=== PATIENT | male | born 1935 | race Caucasian/White ===

== ENCOUNTER 2019-02-19 14:07 | Outpatient (CLI) | payer MEDICARE, BC, SELFPAY ==
--- NOTE | 2019-02-19 06:00 | DI.RAD_ITS ---
SYMPTOMS/DIAGNOSIS: LUMBAR RADICULOPATHY PAIN CLINIC LUMBAR SPINE: Fluoroscopy Time: 13.8 sec Fluoroscopy was utilized by Dr. Gaytan during the performance of a lumbar epidural steroid injection. Please refer to the procedure report for complete details.
[2019-02-19 14:18] VITALS: BP 104/70; PULSE 71; RESP 22; TEMP 37.2; O2SAT 94
[2019-02-19] MEDS: Omnipaque 240 MG/ML 50 ML BTL IJ (14:57)
[2019-02-19 14:58] VITALS: BP 151/88; PULSE 72; RESP 19; O2SAT 93
--- NOTE | 2019-02-19 14:59 | PDOC.PAIN_ITS ---
Pain Clinic Procedure Note Current Active Problems Problem Status Onset Lumbosacral radiculopathy Lumbar Epidural Steroid Injection Procedure Note COMMENTS: I reviewed his recent notes. SARABJIT MORAN has been referred to the [facility] for lumbar epidural steroid injection. The patient was greeted by the nurse who verified patients name and . Patient was then taken to the fluoroscopy suite. The patient was interviewed and the medial record reviewed. There were no med ical, pharmacologic, radiographic, or other structural contraindications to attempting fluoroscopically guided lumbar epidural steroid injection. Risks and expected side effects as well as potential benefits of the procedure were reviewed and voiced concerns expressed. The patient consent form was signed and witnessed. Standard patient time-out procedure was performed. The patient was placed in the prone position on the fluoroscopy table and automated blood pressure cuff and pulse oximeter applied. The skin entry point for entering/approaching the epidural space at L5-S1 and marked. Following thorough chlorhexadine preparation of the skin and draping and 1% lidocaine infiltration of the skin entry point and subcutaneous tissues, a 18 gauge Touhy needle was placed under fluoroscopic guidance and with loss of resistance technique into the epidural space. Needle tip placement and depth were aided and confirmed by fluoroscopy. There was no paresthesia or return of blood or CSF through the needle. 1 cc's of Omnipaque 240 was injected with clear epidural spread confirmed with fluoroscopy. 80mg depomedrol was injected. There was not any unusual discomfort expressed by SARABJIT MORAN. Patient's vital signs were stable throughout the procedure and were as recorded in nursing records. Follow up plans and appointments were discussed with patient. Post procedure instruction was given as documented in nursing records and having met discharge criteria and was discharged from the [facility]. COMMENTS: If this procedure is helpful, it can be completed up to 3 times per 12 months.
[2019-02-19] MEDS: methylPREDNISolone ACETATE 40 MG/ML VIAL IM (15:23)
== END 2019-02-19 14:27 ==
PROVIDERS: PCP Family Medicine; Visit Provider Preventive Medicine Occupational Medicine
DX: M54.17 Radiculopathy, lumbosacral region (principal)
CPT/HCPCS: 62323; 72100; J1030; Q9967

== ENCOUNTER 2019-03-25 13:53 | Emergency (ER) | payer MEDICARE, BC, SELFPAY ==
[2019-03-25] VITALS (32 sets, daily range): BP systolic 90–137; BP diastolic 47–85; PULSE 61–79; RESP 13–25; TEMP 35.9; O2SAT 90–98
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
--- NOTE | 2019-03-25 14:21 | DI.CT_ITS ---
EXAM: CT HEAD WO CLINICAL HISTORY: dizzy, struck head a few days ago. TECHNIQUE: A noncontrast enhanced cranial CT was carried out according to the usual protocol. COMPARISON: No exams were available for comparison FINDINGS: Age-appropriate atrophic changes are demonstrated. There is no evidence of an intra or extra-axial hemorrhage. The dukes-white matter is maintained. The ventricles are normal. No acute bony abnormali ty is seen. The sinuses are intact. There is no mastoid effusion. The soft tissues are unremarkable. Note is made of calcification in the vertebral arteries and the bilateral internal carotid arteries. Note is also made of bilateral cataract surgery. IMPRESSION: No acute intracranial abnormality is demonstrated.
[2019-03-25] MEDS: Normal Saline 1,000 ML 1000 ML IV (14:25)
[2019-03-25 14:39] LABS: Abs Immature Grans 0.01 k/cumm (0.0-0.09); Absolute Basophil Count 0.01 k/cumm (0.0-0.2); Absolute Eosinophil Count 0.05 k/cumm (0.0-0.7); Absolute Lymphocyte Count 1.05 k/cumm (1.2-3.4); Absolute Monocyte Count 0.43 k/cumm (0.11-0.7); Absolute Neutrophil Count 4.19 k/cumm (1.2-6.7); Basophils % 0.2; Eosinophils % 0.9; HGB 15.3 g/dL (13.5-17.5); Immature Grans % 0.2; Lymphocytes % 18.3; Mean Corp. HGB Concentration 33.3 g/dL (32.0-36.0); Mean Corpuscular Hemoglobin 31.4 pg (27.0-33.0); Mean Corpuscular Volume 94.3 fL (80-95); Mean Platelet Volume 9.8 fL (8.0-11.0); Monocytes % 7.5; Neutrophils % 72.9; Platelet Count 208 x1000/uL (130-400); RBC 4.88 m/cumm (4.50-6.00); RBC Distribution Width 14.5 % (11.8-14.1); White Blood Cell Count 5.74 k/cumm (4.4-10.8)
[2019-03-25 14:56] LABS: ALT 23 U/L (16-63); AST 16 U/L (15-37); Albumin 3.6 g/dL (3.4-5.0); Alkaline Phosphatase 97 U/L (46-116); Anion Gap 7.1 mmol/L (3-11); BUN 22 mg/dL (7-18); Bilirubin, Total 0.5 mg/dL (0.2-1.0); CO2 27.9 mmol/L (21.0-32.0); CREATININE 1.24 mg/dL (0.70-1.30); Calcium 9.1 mg/dL (8.5-10.1); Chloride 104 mmol/L (98-107); Estimated GFR 55.81 (mL/min/1.73m2); Glucose 89 mg/dL (70-100); Magnesium 1.9 mg/dL (1.8-2.4); Potassium 4.4 mmol/L (3.5-5.1); Sodium 139 mmol/L (136-145); Total Protein 7.5 g/dL (6.4-8.2)
[2019-03-25 15:02] LABS: Troponin I < 0.05 ng/mL (0.00-0.06)
--- NOTE | 2019-03-25 15:05 | DI.CT_ITS ---
EXAM: CT THORAX ABDOMEN CTA CLINICAL HISTORY: hypotensive, abdominal discomfort,? AAA TECHNIQUE: The study was carried out according to the usual protocol with an intravenous administrat ion of 100 cc of Omnipaque 350. COMPARISON: No exams were available for comparison FINDINGS: THORAX: There is no evidence of an aortic aneurysm or dissection. The lungs are unremarkable. There is no pn eumothorax or pleural effusion. The heart is not enlarged. There is no lymphadenopathy. Chronic co mpression fractures of multiple thoracic vertebra are noted. The soft tissues are intact. ABDOMEN: The abdominal aorta measures 2.9 cm and is at the upper level of normal. The spleen has a heterogeneo us appearance, likely secondary to the arterial phase of enhancement. Small hiatal hernia. The remain ing visualized organs are unremarkable. IMPRESSION: No evidence of PE or dissection.
[2019-03-25] MEDS: Omnipaque 350 MG/ML 100 ML BTL IV (15:23)
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
--- NOTE | 2019-03-25 16:29 | DI.VRAD_ITS ---
PROCEDURE INFORMATION: Exam: CT Head Without Contrast Exam date and time: 03/25/2019 3:31 PM Clinical history: 84 years old, male; Other: Dizzy, struck head a few days ago TECHNIQUE: Imaging protocol: Computed tomography of the head without contrast. Radiation optimization: All CT scans at this facility use at least one of these dose optimization techniques: automated exposure control; mA and/or kV adjustment per patient size (includes targeted exams where dose is matched to clinical indication); or iterative reconstruction. COMPARISON: No relevant prior studies available. FINDINGS: Brain: Basal ganglia calcifications. There are moderate periventricular and subcortical lucencies consistent with chronic microvascular ischemic changes.The dukes-white differentiation is maintained. No hemorrhage. No edema. Ventricles: Normal. No ventriculomegaly. Bones/joints: Unremarkable. No acute fracture. Sinuses: Visualized sinuses are unremarkable. No fluid levels. Mastoid air cells: The mastoid sinuses are normal. Soft tissues: Unremarkable. Vasculature: Calcification of vertebral arteries and bilateral internal carotid arteries. Bilateral cataract surgery. IMPRESSION: No acute intracranial abnormality. Chronic microvascular ischemic changes. Dictated and Authenticated by: Benjamin Shrestha MD. Ordering:KD Graham MD
[2019-03-25 17:57] LABS: Troponin I < 0.05 ng/mL (0.00-0.06)
--- NOTE | 2019-03-25 19:09 | NUR.NOTE ---
Nursing Note: Report given to Samantha, power and recovery shift engineer RN
--- NOTE | 2019-03-25 19:48 | DI.VRAD_ITS ---
Addendum created by Benjamin Shrestha DO on 03/25/2019 7:48:06 PM EDT This is an addendum to prior report on CT angiography chest with contrast. The abdominal aorta measures 2.9 cm and is at upper levels of normal. The spleen has heterogeneous appearance, likely secondary to the arterial phase of enhancement. Small hiatal hernia.The remaining visualized organs are unremarkable. Initial report created on 03/25/2019 4:26:07 PM EDT PROCEDURE INFORMATION: Exam: CT Angiography Chest With Contrast Exam date and time: 03/25/2019 3:40 PM Clinical history: 84 years old, male; Other: Hypotensive, abdominal discomfort, ? aaa; Patient HX: Artifact under patient was presumed to be belt buckle and was moved out of field. TECHNIQUE: Imaging protocol: Computed tomographic angiography of the chest with intravenous contrast. 3D rendering: MIP reconstructed images were created and reviewed. Radiation optimization: All CT scans at this facility use at least one of these dose optimization techniques: automated exposure control; mA and/or kV adjustment per patient size (includes targeted exams where dose is matched to clinical indication); or iterative reconstruction. Contrast material: OMNIPAQUE 350; Contrast volume: 100 ml; Contrast route: IV; COMPARISON: No relevant prior studies available. FINDINGS: Pulmonary arteries: Normal. No pulmonary emboli. Aorta: Unremarkable. No aortic aneurysm. No aortic dissection. Lungs: Unremarkable. No consolidation. No masses. Pleural space: Unremarkable. No pneumothorax. No pleural effusion. Heart: Unremarkable. No cardiomegaly. No pericardial effusion. Lymph nodes: Unremarkable. No enlarged lymph nodes. Bones/joints: Chronic compression fractures of multiple thoracic vertebrae. Soft tissues: Unremarkable. IMPRESSION: No pulmonary embolism. Dictated and Authenticated by: Benjamin Shrestha MD. Ordering:KD Graham MD
== END 2019-03-25 20:05 | disposition home or self-care (01) ==
PROVIDERS: Physician Assistant; Emergency Provider Physician Assistant; PCP Family Medicine
DX: E86.0 Dehydration (principal); I45.10 Unspecified right bundle-branch block; M54.5 Low back pain; I10 Essential (primary) hypertension; E11.9 Type 2 diabetes mellitus without complications; Z95.0 Presence of cardiac pacemaker
CPT/HCPCS: 36415; 71275; 74175; 80053; 93005; 96360; 99285; 70450; 83735; 84484; 85025; 93010; J3490